=== PATIENT | male | born 1965 | race Asian ===

== ENCOUNTER 2019-02-20 08:04 | Emergency (ER) | payer MEDICARE, MEDICAID ==
[~2019-02-20] VITALS: Ht 160 cm; Wt 77.3 kg
[~2019-02-20 08:04] MED LIST: ACET1TAB12 PO; HYDR-4353 PO; ONDA8TAB9 PO; PANT-47 PO
[2019-02-20 08:22] VITALS: BP 147/89
[2019-02-20] MEDS ORDERED: CEPH250T PO (08:38)
[2019-02-20] MEDS ORDERED: MUPI22OI30 TOP (08:38)
== END 2019-02-20 08:51 | disposition home or self-care (01) ==
LOC: ER 08:05
DX: S80.862A Insect bite (nonvenomous), left lower leg, initial encounter (principal); L02.415 Cutaneous abscess of right lower limb; L03.116 Cellulitis of left lower limb; E78.00 Pure hypercholesterolemia, unspecified; F10.99 Alcohol use, unspecified with unspecified alcohol-induced disorder; Z79.899 Other long term (current) drug therapy; Y90.9 Presence of alcohol in blood, level not specified; W57.XXXA Bitten or stung by nonvenomous insect and other nonvenomous arthropods, initial encounter; Y93.89 Activity, other specified; Y92.89 Other specified places as the place of occurrence of the external cause; Y99.8 Other external cause status
CPT/HCPCS: 99283